=== PATIENT | female | born 1995 | race American Indian/Alaskan Native ===

== ENCOUNTER 2020-05-06 10:33 | Emergency (ER) | payer SELFPAY ==
[2020-05-06 10:51] VITALS: BP 128/89
[2020-05-06 11:45] LABS: Bilirubin,Urine NEG (Negative); Blood,Urine NEG (Negative); Color,Urine Yellow (Yellow); Mucus,Urine FEW /HPF; Protein,Urine <15 mg/dL mg/dL (Negative); Urobilinogen,Urine < 2.0 mg/dL (<2.0); WBC,Urine < 1.0 /HPF (0.0-6.0)
[2020-05-06 12:01] LABS: HCG Qualitative,Urine Negative (Negative)
--- NOTE | 2020-05-06 13:39 | Emergency Department Report ---
Chief Complaint: Urogenital-Female Stated Complaint: MISSED CYCLE Time Seen by Provider: 05/06/20 10:53 - HPI History of Present Illness: This is a 25-year-old G0, P0 female presents ED complaining of missed cycle and lower pelvic cramping. Patient states her last menstrual period was March 25, 2020. Patient states since then she has had intermittent cramping like her period is about to start but is not coming. Patient states that she is taking 2 test which were negative at home. Patient denies fever/chills/nausea vomiting/vaginal discharge/dysuria. Patient states is worried she might be . - ROS Review of Systems: As noted in HPI - Exam Vital Signs: Vital Signs 05/06/20 10:50 Temperature 98.6 F Pulse Rate 88 Respiratory 16 Rate Blood Pressure 128/89 O2 Sat by Pulse 99 Oximetry Physical Exam: GENERAL: Alert and oriented x3, no apparent distress, Normal Gait, atraumatic. HEAD: Head is normocephalic and a-traumatic. ABDOMEN: No organomegaly was noted,Positive bowel sounds, soft, and non- distended. . Nontender to palpation on all Quadrants, NO CVA tenderness. MSE screening note: Focused history and physical exam performed. Due to findings the following was ordered: ED Medical Decision Making - Medical Decision Making 25-year-old female presents with concerns of missed menstrual. Urinalysis negative, urine test negative. Discussed all findings with the patient. Discussed with patient need to follow-up with her [facility] for further work-up for irregular cycle. Patient was in no acute or respiratory distress. Understands all instructions given. Referrals given to patient, Patient had no medical emergency throughout ED stay. ED Disposition for MSE Clinical Impression: Irregular menstrual cycle Disposition: DC-01 TO HOME OR SELFCARE Is pt being admited?: No Does the pt Need Aspirin: No Condition: Stable Instructions: Abnormal Uterine Bleeding, [id number] Additional Instructions: Make sure to follow up with the [facility] as discussed. Take all your medications as you've been prescribed. If you have any worsening symptoms or develop new symptoms please return to ED immediately. Referrals: PRIMARY CARE, [Primary Care Provider] - 3-5 Days [facility] [Provider Group] - 3-5 Days [facility] [Outside] - 3-5 Days [facility] [Outside] - 3-[address] [facility] [Outside] - 3-5 Days Forms: Work/School Release Form(ED) Time of Disposition: 13:44
== END 2020-05-06 14:00 | disposition home or self-care (01) ==
LOC: ED 10:33
DX: N92.6 Irregular menstruation, unspecified (principal)
CPT/HCPCS: 81001; 81025; 99283